=== PATIENT | female | born 1950 | race Caucasian/White ===

== ENCOUNTER → 2019-10-12 | Outpatient (CLI) | payer MEDICARE, BC ==
--- NOTE | 2019-10-20 09:54 | MY ---
INDICATION: Cancer screening. MAMMOGRAPHY: Two-view bilateral digital screening 2-D mammography with breast tomosynthesis and computer aided detection was obtained 10/12/2019 and compared with mammograms dating back to 09/30/2014 and 09/28/2013. Asymmetric heterogeneously dense fibroglandular breast tissue was present which diminishes sensitivity of mammography. No other significant interval change, dominant mass lesions, pathologic calcifications, skin thickening or dimpling could be identified to suggest malignancy. IMPRESSION: 1. Mammography negative for malignancy. Yearly screening mammography recommended for follow up. 2. Somewhat asymmetrical heterogeneously dense fibroglandular breast tissue was present which diminishes sensitivity of mammography. Category 1, negative. MTDD
== END ==
LOC: FB.DI 10:04
PROVIDERS: ATTEND Family Medicine
DX: Z12.31 Encounter for screening mammogram for malignant neoplasm of breast (principal)
CPT/HCPCS: 77063; 77067

== ENCOUNTER 2021-04-16 13:51 | Emergency (ER) | payer MEDICARE, BC ==
--- NOTE | 2021-04-16 13:53 | EDM.PDOC ---
ED HPI GENERAL MEDICAL PROBLEM - General Time Seen by Provider: 04/16/21 13:52 Source of Information: Reports: Patient, Family (Patient's ) History Limitations: Reports: No Limitations - History of Present Illness INITIAL COMMENTS - FREE TEXT/NARRATIVE: 70-year-old female who states she has been feeling well and had been eating and drinking normally with no feelings of weakness or dizziness who was walking into [facility] to go arrange to have some pitchers printed out for her grandchildren and she states that she suddenly began to feel like her heart was beating very fast and that both of her legs were very heavy and had weights on them and that she could not pick them up. She states he felt rather "bad all over" and told her that they needed to the car because she wasn't feeling well and apparently shortly after that she had a collapse. The patient doesn't remember any of this collapse but the reports that she did hit her head on the whole of the shopping cart and then lightly tapped her head on the concrete floor. He did stop her from falling but he states that she was " weight" and that she was out for 30 seconds to a minute. There was no seizure-like activity noted by him. She had no diaphoresis associated with this. When she awoke, she quickly came back to herself and there was no postictal period per the 's description. The patient tells me that she doesn't remember anything after having those feelings of fast heart rate and leaden feet until she opened her eyes and saw people standing around her. She has no headache. She had no headache prior to this. She was having no chest pain and has no chest pain now. There was no shortness of breath. She has had no symptoms like this before. There was no nausea or vomiting. No dysuria or hematuria. No cough. No black stools. No blood in her stools. She has been having normal stools according to the patient. She tells me that prior to this she felt completely well. She tells me that she now feels well again and has no symptoms at all. This occurred approximately 1 PM. There are no other associated signs or symptoms. There are no other modifying factors. - Related Data Allergies Allergy/AdvReac Type Severity Reaction Status Date / Time No Known Allergies Allergy Verified 10/06/14 11:31 Home Meds: Home Meds Bisoprolol/Hydrochlorothiazide [Ziac 5-6.25 MG] 1 tab PO DAILY 10/06/14 [History] Fluticasone Propionate [Flonase] 2 spray NS DAILY 10/06/14 [History] Furosemide [Lasix] 40 mg PO DAILY 04/16/21 [History] Losartan [Cozaar] 50 mg PO DAILY 04/16/21 [History] Oxybutynin 5 mg PO DAILY 04/16/21 [History] atorvaSTATin [Lipitor] 20 mg PO DAILY 04/16/21 [History] metFORMIN [Glucophage XR] 500 mg PO BID 04/16/21 [History] Past Medical History HEENT History: Reports: Impaired Vision Cardiovascular History: Reports: Heart Murmur, High Cholesterol, Hypertension, Other (See Below) (Rheumatic fever) Musculoskeletal History: Reports: Other (See Below) (Lymphedema in both her legs) Endocrine/Metabolic History: Reports: Diabetes, Type II Dermatologic History: Reports: Venous Stasis Dermatitis (Of both lower extremities.) - Past Surgical History Female Surgical History: Reports: Other (See Below) (Tumor removed from genital area.) Social & Family History - Tobacco Use Tobacco Use Status *Q: Unknown Ever Used Tobacco (Smoker.) - Alcohol Use Alcohol Use History: Yes Alcohol Use Frequency: Socially - Living Situation & Occupation Occupation: Retired ED ROS GENERAL - Review of Systems Review Of Systems: See Below Constitutional: Reports: No Symptoms HEENT: Reports: No Symptoms Respiratory: Reports: No Symptoms Cardiovascular: Reports: Syncope, Other (Fast heart rate) Endocrine: Reports: No Symptoms GI/Abdominal: Reports: No Symptoms : Reports: No Symptoms Musculoskeletal: Reports: Other (Bilateral lower extremity lymphedema.) Skin: Reports: Wound (Chronic venous stasis with venous stasis ulcers on both lower legs.) Neurological: Reports: Syncope Psychiatric: Reports: No Symptoms Hematologic/Lymphatic: Reports: No Symptoms Immunologic: Reports: No Symptoms - Physical Exam Exam: See Below Exam Limited By: No Limitations General Appearance: Alert, No Apparent Distress, Obese Eye Exam: Bilateral Eye: EOMI, Normal Inspection (Sclerae are anicteric), PERRL Ears: Normal External Exam, Hearing Grossly Normal Nose: Normal Inspection, Normal Mucosa, No Blood Throat/Mouth: Normal Inspection, Normal Lips, Normal Oropharynx, Normal Voice, No Airway Compromise Head Exam: Atraumatic, Normocephalic Neck: Normal Inspection, Supple, Non-Tender, Full Range of Motion Respiratory/Chest: No Respiratory Distress, Lungs Clear, Normal Breath Sounds, No Accessory Muscle Use, Chest Non-Tender Cardiovascular: Normal Peripheral Pulses, Regular Rate, Rhythm, Systolic Murmur (3/6), Other (Occasional extra beats.) GI/Abdominal: Normal Bowel Sounds, Soft, Non-Tender, No Mass Neuro Exam (Abbreviated): Alert, Oriented, CN II-XII Intact, Normal Cognition, No Motor/Sensory Deficits Back Exam: Normal Inspection, Full Range of Motion Extremities: Pedal Edema (Marked lymphedema both lower extremities) Psychiatric: Normal Affect Skin Exam: Warm, Dry #1 Interpretation EKG Date: 04/16/21 Time: 14:00 Rhythm: NSR Rate (Beats/Min): 92 [place]: LAD-Left [place] Deviation (Slight left axis.) P-Wave: Enlarged (Left atrial enlargement) QRS: Normal ST-T: Other (LVH with secondary repolarization abnormality.) QT: Prolonged (Prolonged QTc.) Comparison: NA - No Prior EKG EKG Interpretation Comments: Ventricular bigeminy. Course - Vital Signs Last Recorded V/S: Last Vital Signs Temp 36.7 C 04/16/21 14:08 Pulse 98 04/16/21 14:08 Resp 20 04/16/21 14:08 BP 127/62 04/16/21 14:08 Pulse Ox 96 04/16/21 14:08 - Orders/Labs/Meds Orders: Active Orders 24 hr Category Date Time Status Ang Chest [CT] Stat Exams 04/16/21 15:29 Taken Chest 1V Frontal [CR] Stat Exams 04/16/21 14:33 Stop Req Head wo Cont [CT] Stat Exams 04/16/21 14:33 Taken Peripheral IV Insertion Adult [OM.PC] Routine Oth 04/16/21 14:33 Ordered EKG 12 Lead [EK] Routine Ther 04/16/21 14:33 Ordered Labs: Laboratory Tests 04/16/21 04/16/21 04/16/21 Range/Units 14:42 14:42 14:42 WBC 6.8 (3.0-10.3) x10-3/uL RBC 4.26 (3.60-5.20) x10(6)uL Hgb 12.2 (11.4-15.5) g/dL Hct 35.6 (34.2-48.2) % MCV 83.5 (76.7-100.5) fL MCH 28.6 (23.9-33.9) pg MCHC 34.2 (31.9-34.8) g/dL RDW 14.8 (12.3-16.5) % Plt Count 192 (151-488) x10(3)uL MPV 8.8 (7.1-12.4) fL Neut % (Auto) 71.4 (30.8-76.2) % Lymph % (Auto) 19.9 (18.4-52.1) % [place] % (Auto) 7.2 (4.4-15.7) % Eos % (Auto) 1.1 (0.6-8.1) % Baso % (Auto) 0.4 (0.2-1.5) % Neut # (Auto) 4.8 (1.5-6.3) x10-3/uL Lymph # (Auto) 1.3 (1.0-4.4) x10-3/uL [place] # (Auto) 0.5 (0.3-1.0) x10-3/uL Eos # (Auto) 0.1 (0.0-0.8) x10-3/uL Baso # (Auto) 0.0 (0.0-0.1) x10-3/uL D-Dimer, Quantitative 1.42 H (0.0-0.59) mg/LFEU Sodium 138 (135-145) mmol/L Potassium 3.4 L (3.5-5.3) mmol/L Chloride 99 L (100-110) mmol/L Carbon Dioxide 33 H (21-32) mmol/L BUN 13 (7-18) mg/dL Creatinine 0.8 (0.55-1.02) mg/dL Est Cr Clr Drug Dosing TNP Estimated GFR (MDRD) > 60 (>60) BUN/Creatinine Ratio 16.3 (9-20) Glucose 139 H (80-116) mg/dL Calcium 8.3 L (8.6-10.2) mg/dL Magnesium 1.5 L (1.8-2.5) mg/dL Total Bilirubin 0.6 (0.1-1.3) mg/dL AST 20 (5-25) IU/L ALT 23 (12-36) U/L Alkaline Phosphatase 145 H (56-112) IU/L Troponin I (4.0-60.3) pg/mL C-Reactive Protein (0.5-0.9) mg/dL Total Protein 7.3 (6.0-8.0) g/dL Albumin 3.0 L (3.2-4.6) g/dL Globulin 4.3 g/dL Albumin/Globulin Ratio 0.7 Urine Color (YELLOW) Urine Appearance (CLEAR) Urine pH (5.0-6.5) Ur Specific [place] (1.010-1.025) Urine Protein (NEGATIVE) mg/dL Urine Glucose (UA) (NORMAL) mg/dL Urine Ketones (NEGATIVE) mg/dL Urine Occult Blood (NEGATIVE) Urine Nitrite (NEGATIVE) Urine Bilirubin (NEGATIVE) Urine Urobilinogen (NEGATIVE) mg/dL Ur Leukocyte Esterase (NEGATIVE) U Hyaline Cast (Auto) (NS) Urine RBC (0-5) Urine WBC (0-5) Ur Squamous Epith Cells (NS,R,O) Urine Bacteria (NS) 04/16/21 04/16/21 04/16/21 Range/Units 14:42 14:42 14:50 WBC (3.0-10.3) x10-3/uL RBC (3.60-5.20) x10(6)uL Hgb (11.4-15.5) g/dL Hct (34.2-48.2) % MCV (76.7-100.5) fL MCH (23.9-33.9) pg MCHC (31.9-34.8) g/dL RDW (12.3-16.5) % Plt Count (151-488) x10(3)uL MPV (7.1-12.4) fL Neut % (Auto) (30.8-76.2) % Lymph % (Auto) (18.4-52.1) % [place] % (Auto) (4.4-15.7) % Eos % (Auto) (0.6-8.1) % Baso % (Auto) (0.2-1.5) % Neut # (Auto) (1.5-6.3) x10-3/uL Lymph # (Auto) (1.0-4.4) x10-3/uL [place] # (Auto) (0.3-1.0) x10-3/uL Eos # (Auto) (0.0-0.8) x10-3/uL Baso # (Auto) (0.0-0.1) x10-3/uL D-Dimer, Quantitative (0.0-0.59) mg/LFEU Sodium (135-145) mmol/L Potassium (3.5-5.3) mmol/L Chloride (100-110) mmol/L Carbon Dioxide (21-32) mmol/L BUN (7-18) mg/dL Creatinine (0.55-1.02) mg/dL Est Cr Clr Drug Dosing Estimated GFR (MDRD) (>60) BUN/Creatinine Ratio (9-20) Glucose (80-116) mg/dL Calcium (8.6-10.2) mg/dL Magnesium (1.8-2.5) mg/dL Total Bilirubin (0.1-1.3) mg/dL AST (5-25) IU/L ALT (12-36) U/L Alkaline Phosphatase (56-112) IU/L Troponin I 62.8 H* (4.0-60.3) pg/mL C-Reactive Protein 1.8 H (0.5-0.9) mg/dL Total Protein (6.0-8.0) g/dL Albumin (3.2-4.6) g/dL Globulin g/dL Albumin/Globulin Ratio Urine Color Yellow (YELLOW) Urine Appearance Slightly cloudy (CLEAR) Urine pH 6.5 (5.0-6.5) Ur Specific [place] 1.015 (1.010-1.025) Urine Protein 500 H (NEGATIVE) mg/dL Urine Glucose (UA) Normal (NORMAL) mg/dL Urine Ketones Negative (NEGATIVE) mg/dL Urine Occult Blood Moderate H (NEGATIVE) Urine Nitrite Negative (NEGATIVE) Urine Bilirubin Negative (NEGATIVE) Urine Urobilinogen 8 H (NEGATIVE) mg/dL Ur Leukocyte Esterase Negative (NEGATIVE) U Hyaline Cast (Auto) Few H (NS) Urine RBC 5-10 H (0-5) Urine WBC 0-5 (0-5) Ur Squamous Epith Cells Moderate H (NS,R,O) Urine Bacteria Few H (NS) Meds: Medications Discontinued Medications Generic Name Dose Route Start Last Admin Trade Name Freq PRN Reason Stop Dose Admin Magnesium Sulfate 2 gm/ Premix 50 mls @ 50 mls/hr 04/16/21 17:59 04/16/21 18:39 IV 04/16/21 18:58 50 mls/hr ONETIME ONE Administration Potassium Chloride 20 meq 04/16/21 18:00 04/16/21 18:38 Potassium Chloride 20 Meq Packet PO 20 meq ASDIRECTED MOLLY Administration Sodium Chloride 10 ml 04/16/21 14:33 Sodium Chloride 0.9% 10 Ml Syringe FLUSH ASDIRECTED PRN Keep Vein Open - Radiology Interpretation Free Text/Narrative:: CT scan of head showed no acute abnormality per the [facility] radiologist. CTA of chest showed no sign of pulmonary embolism. There was mild patchy ground glass interstitial density with a Mohs a distribution that was consistent with nonspecific pulmonary fibrosis. There is also mild cardiomegaly with moderate 3 vessel coronary calcification and moderate calcification of the aortic valve annulus. This was per the [facility] radiologist. - Re-Assessments/Exams Free Text/Narrative Re-Assessment/Exam: 04/16/21 15:25: Patient's CBC was normal. Her potassium was 3.4 and her magnesium was 1.5. Her CRP was 1.5. Her bicarbonate was 33. All other blood tests were essentially normal. Patient's d-dimer however was elevated at 1.42. She has remained hemodynamically stable with no further dysrhythmia other than frequent PVCs. Her blood pressure and pulse have remained stable. She has remained neurologically stable. She states she feels "back to normal". With the elevated d-dimer and her syncopal episode, she will need to have a CTA of her chest. I will order this and cancel the portable chest x-ray. 04/16/21 17:50: CT of the head was normal. CTA of the chest showed no evidence of PE and it did show triple vessel coronary artery calcification and some evidence of pulmonary fibrosis but nothing that would've explained the patient's syncopal episode or potential dysrhythmia. With the patient's syncopal episode, her slightly elevated troponin and the tachycardia dysrhythmia that she had associated with this, she will need admission with monitoring. She also cardiology specially services which are not available at [facility]. 04/16/21 18:00: I discussed all this with the patient and she would prefer that I discussed her case with the doctors at [facility] in [place]. 04/16/21 18:05: I did call [facility] and they will have to get the hospitalist to call me back. 04/16/21 18:20: I discussed the patient's case with Dr. Adler, hospitalist at [facility] in [place], and because the patient had a fall with head injury associated with the syncopal episode, he feels that the patient will need to go through trauma and go through the emergency department. 04/16/21 18:40: I discussed patient's case with Dr. Sargent, ED physician at [facility] in [place], and she has agreed to accept the patient in transfer. The patient will be transferred via [facility] ambulance service to [facility] emergency department for evaluation and admission. Evaluation and with the patient's family and they are in agreement with this plan. The patient continues to remain hemodynamically and neurologically stable. She has had no further dysrhythmias other than PVCs. The patient is receiving magnesium 2 g IV now and she received potassium chloride 20 mEq by mouth. Departure - Departure Time of Disposition: 19:31 Disposition: DC/Tfer to Acute Hospital 02 Condition: Fair (Guarded) Clinical Impression: Hypokalemia, Hypomagnesemia Syncope Qualifiers: Syncope type: unspecified Qualified Code(s): R55 - Syncope and collapse Closed head injury Qualifiers: Encounter type: initial encounter Qualified Code(s): S09.90XA - Unspecified injury of head, initial encounter Fall Qualifiers: Encounter type: initial encounter Qualified Code(s): W19.XXXA - Unspecified fall, initial encounter - Discharge Information Referrals: Adiel Mann MD [Primary Care Provider] - Forms: ED Department Discharge - My Orders Last 24 Hours: My Active Orders 04/16/21 14:33 Chest 1V Frontal [CR] Stat Head wo Cont [CT] Stat Peripheral IV Insertion Adult [OM.PC] Routine EKG 12 Lead [EK] Routine 04/16/21 15:29 Ang Chest [CT] Stat - Assessment/Plan Last 24 Hours: My Active Orders 04/16/21 14:33 Chest 1V Frontal [CR] Stat Head wo Cont [CT] Stat Peripheral IV Insertion Adult [OM.PC] Routine EKG 12 Lead [EK] Routine 04/16/21 15:29 Ang Chest [CT] Stat
[2021-04-16] MEDS ORDERED: Sodium Chloride 0.9% 10 ML Syringe FLUSH PRN (14:33)
[2021-04-16] MEDS ORDERED: Iopamidol 755 Mg/ML 75 ML Bottle IV ONE (15:40)
[2021-04-16] MEDS ORDERED: Magnesium Sulfate/Water 2 GM in Premix Bag 1 BAG IV ONE (17:59)
[2021-04-16] MEDS ORDERED: Potassium Chloride 20 MEQ Packet PO SCH (18:00)
== END 2021-04-16 19:31 ==
LOC: FB.ED 13:51
DX: S09.90XA Unspecified injury of head, initial encounter (principal); R55 Syncope and collapse; E87.6 Hypokalemia; E83.42 Hypomagnesemia; F17.200 Nicotine dependence, unspecified, uncomplicated; E78.00 Pure hypercholesterolemia, unspecified; I10 Essential (primary) hypertension; E11.9 Type 2 diabetes mellitus without complications; Z79.84 Long term (current) use of oral hypoglycemic drugs; Z79.899 Other long term (current) drug therapy; W19.XXXA Unspecified fall, initial encounter
CPT/HCPCS: 36415; 70450; 71275; 80053; 81001; 83735; 84484; 85025; 85379; 86140; 93005; 96365; 99285; A9270; J3475; Q9967